=== PATIENT | male | born 1975 | race Caucasian/White ===

== ENCOUNTER 2019-02-01 02:24 | Inpatient (IN) | payer SELFPAY ==
[~2019-02-01] VITALS: Ht 185.4 cm; Wt 95.3 kg
[2019-02-01 02:35] VITALS: BP 123/85
[2019-02-01] MEDS ORDERED: NKM (02:39)
[2019-02-01] MEDS ORDERED: Nitroglycerin 2% oint pkt TOPIC ONE (03:00)
[2019-02-01] MEDS ORDERED: Isovue-300 100ml vial INJ PRN (03:00)
[2019-02-01 03:11] LABS: BASOPHILS % (AUTO) 0.6 % (0.0-2.0); EOSINOPHILS % (AUTO) 2.6 % (0.0-3.0); HEMATOCRIT 40.3 % (42.0-52.0); LYMPHOCYTES % (AUTO) 17.1 % (20.0-45.0); MEAN CORPUSCULAR VOLUME 89 FL (80-99); MONOCYTES % (AUTO) 7.4 % (1.0-10.0); NEUTROPHILS % (AUTO) 72.3 % (45.0-75.0); PLATELET COUNT 316 K/UL (150-450); RED BLOOD COUNT 4.54 M/UL (4.70-6.10)
--- NOTE | 2019-02-01 03:17 | Emergency Room Report ---
History of Present Illness General Chief Complaint: Pain Source: Patient Present Illness HPI Patient is a 43-year-old male brought in by self after approximately 1 week of persistent right great toe pain. [facility]. He reports having increased pain to the great toe which he describes a throbbing sensation. Patient reports being a smoker. He states that he had been attempting to lenny the toe with a small amount of bleeding. Patient additionally states that he had been putting a boil extraction ointment onto the tip. He denies any fever. Allergies: Coded Allergies: No Known Allergies (Unverified , 02/01/19) Patient History Past Medical History: see triage record Reviewed Nursing Documentation: PMH: Agreed; PSxH: Agreed Nursing Documentation-PMH Past Medical History: No Stated History Review of Systems All Other Systems: negative except mentioned in HPI Physical Exam Vital Signs Date Time Temp Pulse Resp B/P (MAP) Pulse Ox O2 Delivery O2 Flow Rate FiO2 02/01/19 02:35 98.2 93 16 123/85 (98) 98 Room Air Sp02 EP Interpretation: reviewed, normal General Appearance: normal inspection, well appearing, no apparent distress, alert, GCS 15 Head: atraumatic ENT: normal ENT inspection, hearing grossly normal, normal voice Neck: normal inspection, full range of motion, supple, no bony tend Respiratory: normal inspection, lungs clear, normal breath sounds, no respiratory distress, no retraction, no wheezing Cardiovascular #1: regular rate, rhythm, no edema Gastrointestinal: normal inspection, normal bowel sounds, non tender, soft, no guarding, no hernia Genitourinary: no CVA tenderness Musculoskeletal: normal range of motion, swelling - metatarsal swelling, slight erythema, discoloration to skin of right great toe Neurologic: normal inspection, alert, oriented x3, responsive, veneer drier III-XII nml as tested, speech normal Psychiatric: normal inspection, judgement/insight normal, mood/affect normal Skin: no rash, other - pallor to dorsum of toe and plantar aspect of great toe. some dark discoloration to lateral part left great toe Medical Decision Making Diagnostic Impression: Primary Impression: Cellulitis of foot Additional Impressions: Ischemic toe Substance abuse ER Course Patient presented for toe pain. Reportedly this is been present for several days. Patient had previously been seen by physicians [facility]. Patient was noted to have swelling and erythema to the foot as well as to the plantar aspect of the foot. The left great toe was noted to have some area of pale and necrotic tissue. There was some bruising noted which appears to be new. Patient initially was not forthcoming with history. Patient subsequently admitted that he had been injecting amphetamine into the veins of his foot. Patient had no response to topical nitrates. He was given IV for pain as well as Zosyn.Patient was started on heparin drip due to possible thrombosis of the arterial circulation to the great toe. Dr. Rasheed Silver was contacted for inpatient management. Labs Test 02/01/19 03:01 02/01/19 03:19 White Blood Count 10.0 K/UL (4.8-10.8) Red Blood Count 4.54 M/UL (4.70-6.10) Hemoglobin 14.0 G/DL (14.2-18.0) Hematocrit 40.3 % (42.0-52.0) Mean Corpuscular Volume 89 FL (80-99) Mean Corpuscular Hemoglobin 30.8 PG (27.0-31.0) Mean Corpuscular Hemoglobin Concent 34.7 G/DL (32.0-36.0) Red Cell Distribution Width 11.0 % (11.6-14.8) Platelet Count 316 K/UL (150-450) Mean Platelet Volume 7.1 FL (6.5-10.1) Neutrophils (%) (Auto) 72.3 % (45.0-75.0) Lymphocytes (%) (Auto) 17.1 % (20.0-45.0) Monocytes (%) (Auto) 7.4 % (1.0-10.0) Eosinophils (%) (Auto) 2.6 % (0.0-3.0) Basophils (%) (Auto) 0.6 % (0.0-2.0) Activated Partial Thromboplast Time 28 SEC (23-33) Sodium Level 139 MMOL/L (136-145) Potassium Level 4.0 MMOL/L (3.5-5.1) Chloride Level 101 MMOL/L (98-107) Carbon Dioxide Level 29 MMOL/L (21-32) Anion Gap 9 mmol/L (5-15) Blood Urea Nitrogen 16 mg/dL (7-18) Creatinine 1.0 MG/DL (0.55-1.30) Estimat Glomerular Filtration Rate > 60 mL/min (>60) Glucose Level 97 MG/DL (74-106) Uric Acid 3.5 MG/DL (2.6-7.2) Calcium Level 8.9 MG/DL (8.5-10.1) Total Bilirubin 0.3 MG/DL (0.2-1.0) Aspartate Amino Transf (AST/SGOT) 21 U/L (15-37) Alanine Aminotransferase (ALT/SGPT) 22 U/L (12-78) Alkaline Phosphatase 91 U/L (46-116) Total Protein 7.9 G/DL (6.4-8.2) Albumin 3.9 G/DL (3.4-5.0) Globulin 4.0 g/dL Albumin/Globulin Ratio 1.0 (1.0-2.7) Urine Opiates Screen Negative (NEGATIVE) Urine Barbiturates Screen Negative (NEGATIVE) Phencyclidine (PCP) Screen Negative (NEGATIVE) Urine Amphetamines Screen Positive (NEGATIVE) Urine Benzodiazepines Screen Negative (NEGATIVE) Urine Cocaine Screen Negative (NEGATIVE) Urine Marijuana (THC) Screen Negative (NEGATIVE) Last Vital Signs Date Time Temp Pulse Resp B/P (MAP) Pulse Ox O2 Delivery O2 Flow Rate FiO2 02/01/19 03:07 115/78 02/01/19 02:35 98.2 93 16 98 Room Air Status: unchanged Disposition: ADMITTED INPATIENT Condition: Serious Referrals: NOT CHOSEN IPA/,REFERRING (PCP) Yanick Julian MD February 01, 2019 03:17
[2019-02-01 03:20] LABS: ANION GAP 9 mmol/L (5-15); BLOOD UREA NITROGEN 16 mg/dL (7-18); CALCIUM 8.9 MG/DL (8.5-10.1); CARBON DIOXIDE 29 MMOL/L (21-32); CHLORIDE 101 MMOL/L (98-107); SODIUM 139 MMOL/L (136-145)
[2019-02-01 03:25] LABS: ALANINE AMINOTRANSFERASE 22 U/L (12-78); ALBUMIN 3.9 G/DL (3.4-5.0); ALKALINE PHOSPHATASE 91 U/L (46-116); ASPARTATE AMINO TRANSFERASE 21 U/L (15-37); BILIRUBIN,TOTAL 0.3 MG/DL (0.2-1.0)
[2019-02-01] MEDS ORDERED: Morphine Sulfate 4mg/ml Inj (IV USE ONLY) IVP ONE (03:30)
[2019-02-01] MEDS ORDERED: Piperacillin/Tazobactam 3.375 GM in NS 110 ML IVPB ONE (03:45)
[2019-02-01] MEDS ORDERED: Heparin 5000 units/ml inj IV ONE (05:15)
[2019-02-01] MEDS ORDERED: Heparin 25,000u/D5W 500ml 500 ML IV SCH ×2 (05:15→07:00)
[2019-02-01 06:09] VITALS: BP 114/79
[2019-02-01] MEDS ORDERED: Albuterol/Ipratropium 3ml neb HHN PRN (06:45)
[2019-02-01] MEDS ORDERED: Miralax 17gm pkt ORAL PRN (06:45)
[2019-02-01] MEDS ORDERED: Nitroglycerin Subl 0.4mg tab SL PRN (06:45)
[2019-02-01] MEDS ORDERED: Morphine Sulfate 2mg/ml Inj(IV/IM USE ONLY) IVP PRN (06:45)
[2019-02-01 08:00] VITALS: BP 118/79
[2019-02-01] MEDS ORDERED: Heparin 5000 units/ml inj SUBQ SCH (09:00)
--- NOTE | 2019-02-01 09:14 | Diagnostic Imaging Report ---
Indication: Left foot pain Technique: Continuous helical transaxial imaging of the left foot obtained without intravenous contrast administration. Coronal 2-D reformats were also obtained. Study obtained in a Siemens sensation [address] Automatic Exposure Control was utilized. Total Dose length Product (DLP): [address] Dose Index Volume (CTDIvol): 0.15 x 3, 15.26 mGy Comparison: None Findings: There is a 7 mm linear metallic foreign body within the plantar aspect of the foot. The foreign body is deep to the plantar aponeurosis within intrinsic muscle at about the level of the mid third metatarsal, 1.6 cm from the skin. There is some subcutaneous edema within the foot nonspecific. There is no malalignment, acute fracture, periostitis or erosion. There is no soft tissue gas. No obvious abnormal fluid collection identified. IMPRESSION: 7 mm metallic foreign body within the plantar muscles, acuity indeterminate. Please correlate clinically. Negative examination otherwise. [facility] has communicated the preliminary results to the Emergency Department. Their findings are largely concordant with this report. The CT scanner at [facility] is accredited by the [employer] and the scans are performed using dose optimization techniques as appropriate to a performed exam including Automatic Exposure control.
[2019-02-01] MEDS ORDERED: Vancomycin 1.25gm Premix 275 ML IVPB SCH (09:30)
[2019-02-01] MEDS ORDERED: Cefepime HCl 2 GM in D5W 110 ML IV SCH (11:00)
--- NOTE | 2019-02-01 12:02 | Diagnostic Imaging Report ---
Indication: Foot pain Comparison: None Findings: 3 views of the left foot were obtained. No acute fractures, malalignment, erosions or periostitis are identified. Soft tissues are unremarkable. Impression: No acute findings
--- NOTE | 2019-02-02 07:24 | Discharge Summary ---
Discharge Summary Discharge Summary _ DATE OF ADMISSION: 02/01/2019 DATE OF DISCHARGE: 02/01/2019 BRIEF HOSPITAL COURSE: Patient is a 43-year-old male, who presented to ED complaining of one-week persistent great toe pain. He reported prior visit to [facility] for similar symptoms. He reported increased pain to the great toe described to be a throbbing sensation. He stated he attempted to lenny the toe with a small amount of bleeding. He stated he had been putting boil extraction ointment. He denied any fever. He is a smoker. On evaluation at the ED, vital signs were stable. Blood work did not show any leukocytosis. Patient was afebrile. Hemoglobin and hematocrit were stable. Electrolytes were normal. Urine drug screen was positive for amphetamine. Patient presented for evaluation of toe pain and was noted to have swelling and erythema to the foot as well as plantar aspect of the foot. The left great toe was noted to have area of pale and necrotic tissue. There was bruising noted. Patient admits that he had been injecting amphetamine into the veins of his foot. X-ray of the left foot did not show any fractures, malalignment, erosions or periostitis. Left foot CT scan showed a 7 mm metallic foreign body within the plantar muscle, acuity indeterminate. He was given IV pain medication as well as Zosyn. He was started on heparin drip he was then admitted due to possible thrombosis of the arterial circulation of the great toe. Patient was transferred to [facility]. Upon transfer to the floor, patient decided to leave AMA. Full treatment was not carried out as patient left against medical advise. FINAL DIAGNOSES: Possible thrombosis of arterial circulation of the left great toe Noncompliance as patient left AMA DISPOSITION: Patient left against medical advise. I have been assigned to complete a discharge summary on this account, I was not involved with the patient's management. Ena Rodriguez NP February 02, 2019 07:24
--- NOTE | 2019-02-02 07:25 | History & Physical ---
History and Physical History & Physicial Patient left AMA before being seen Ena Rodriguez NP February 02, 2019 07:25
[2019-02-02] MEDS ORDERED: IBUPROFEN600 MG ORAL (20:21)
== END 2019-02-01 08:25 | disposition left against medical advice (07) | DRG 301 ==
LOC: EMR 02:59 → 4E 04:00 → EDBEDREQ 04:21
DX: I82.402 Acute embolism and thrombosis of unspecified deep veins of left lower extremity (principal); Z91.19 Patient's noncompliance with other medical treatment and regimen; F15.10 Other stimulant abuse, uncomplicated; F17.200 Nicotine dependence, unspecified, uncomplicated
CPT/HCPCS: 36415; 80053; 80307; 84550; 85025; 85730; 96365; 96367; 96375; 99285

== ENCOUNTER 2019-02-02 15:53 | Inpatient (IN) | payer SELFPAY ==
[~2019-02-02] VITALS: Ht 182.9 cm; Wt 95.3 kg
[~2019-02-02 15:53] MED LIST: NKM
--- NOTE | 2019-02-02 16:05 | NUR ---
ED Nurse Note: Patient walked into ED c/o left big toe infection and pain. dark discoloration/swelling noted. patient reports 6/10 shooting pain. patient reports that it all happened couple weeks ago, patient was "shotting meth amphetamine on the left foot, somethin went wrong, swelling started and blocked blood passage to the left big toe." patient also reports hx of ingrown toe-nail. pt was admitted to [facility] for treatment few days ago, unable to stay and signed AMA, patient came back for treatment. patient reports he is only taking ibuprofen for pain, no other medication at this time. patient is alert awake ambulatory breathing unlabored and even.
--- NOTE | 2019-02-02 16:43 | Emergency Room Report ---
History of Present Illness General Chief Complaint: Skin Rash/Abscess Source: Patient Present Illness [facility] This is a 43-year-old male who presents with several weeks of a discoloration of the left great toe. He admits to doing met amphetamines and injecting into the left foot. He was admitted here several days ago for possible cellulitis versus thrombosis. He was started on heparin and IV Zosyn. However, he signed out AGAINST MEDICAL ADVICE about 2 days ago. He now returns for ongoing treatment and management. He denies any fever or any change in his symptoms. Allergies: Coded Allergies: No Known Allergies (Unverified , 02/01/19) Patient History Past Surgical History: none Pertinent Family History: none Social History: Reports: drug use Nursing Documentation-[facility] Past Medical History: No Stated History Review of Systems All Other Systems: negative except mentioned in HPI Physical Exam Vital Signs Date Time Temp Pulse Resp B/P (MAP) Pulse Ox O2 Delivery O2 Flow Rate FiO2 02/02/19 15:56 98.2 91 16 116/78 (91) 96 Room Air General Appearance: well appearing, no apparent distress Head: normocephalic, atraumatic ENT: hearing grossly normal, normal voice Neck: full range of motion, supple Respiratory: no respiratory distress, speaking full sentences Musculoskeletal: no calf tenderness Neurologic: alert, normal gait Psychiatric: mood/affect normal Skin: no rash, other - On her left great toe, it is discolored and mildly swollen. With tenderness to touch. Cap refills are less than 2 seconds. The nailbed is intact. There is no fluctuance. Medical Decision Making Diagnostic Impression: Primary Impression: Foot abrasion, infected ER Course Patient was emergently seen and evaluated. Multiple bedside evaluations was done. I was particularly concerned about osteomyelitis, abscess, thrombosis, necrotic tissue. The previous chart was reviewed. The patient will be readmitted to the hospital. The patient will be admitted to the on-call doctor , Dr. Fitzpatrick. Patient was started on IV Zosyn and was given IV morphine for pain. Laboratory Tests Test 02/02/19 16:41 White Blood Count 9.7 K/UL (4.8-10.8) Red Blood Count 4.24 M/UL (4.70-6.10) L Hemoglobin 13.3 G/DL (14.2-18.0) L Hematocrit 35.8 % (42.0-52.0) L Mean Corpuscular Volume 85 FL (80-99) Mean Corpuscular Hemoglobin 31.4 PG (27.0-31.0) H Mean Corpuscular Hemoglobin Concent 37.0 G/DL (32.0-36.0) H Red Cell Distribution Width 10.4 % (11.6-14.8) L Platelet Count 298 K/UL (150-450) Mean Platelet Volume 5.6 FL (6.5-10.1) L Neutrophils (%) (Auto) 69.3 % (45.0-75.0) Lymphocytes (%) (Auto) 18.4 % (20.0-45.0) L Monocytes (%) (Auto) 7.9 % (1.0-10.0) Eosinophils (%) (Auto) 3.5 % (0.0-3.0) H Basophils (%) (Auto) 1.0 % (0.0-2.0) Sodium Level 140 MMOL/L (136-145) Potassium Level 4.0 MMOL/L (3.5-5.1) Chloride Level 106 MMOL/L (98-107) Carbon Dioxide Level 27 MMOL/L (21-32) Anion Gap 7 mmol/L (5-15) Blood Urea Nitrogen 15 mg/dL (7-18) Creatinine 1.0 MG/DL (0.55-1.30) Estimate Glomerular Filtration Rate > 60 mL/min (>60) Glucose Level 116 MG/DL (74-106) H Calcium Level 8.6 MG/DL (8.5-10.1) Last Vital Signs Date Time Temp Pulse Resp B/P (MAP) Pulse Ox O2 Delivery O2 Flow Rate FiO2 02/02/19 15:56 98.2 91 16 116/78 (91) 96 Room Air Disposition: ADMITTED INPATIENT Condition: Stable TERRY BURGER February 02, 2019 16:43
--- NOTE | 2019-02-02 16:44 | NUR ---
ED Nurse Note: blood sent to lab
[2019-02-02 16:54] VITALS: BP 124/71
[2019-02-02 17:03] LABS: ANION GAP 7 mmol/L (5-15); BLOOD UREA NITROGEN 15 mg/dL (7-18); CALCIUM 8.6 MG/DL (8.5-10.1); CARBON DIOXIDE 27 MMOL/L (21-32); CHLORIDE 106 MMOL/L (98-107); SODIUM 140 MMOL/L (136-145)
[2019-02-02 17:09] LABS: EOSINOPHILS % (AUTO) 3.5 % (0.0-3.0); HEMATOCRIT 35.8 % (42.0-52.0); HEMOGLOBIN 13.3 G/DL (14.2-18.0); LYMPHOCYTES % (AUTO) 18.4 % (20.0-45.0); MEAN CORPUSCULAR VOLUME 85 FL (80-99); MONOCYTES % (AUTO) 7.9 % (1.0-10.0); NEUTROPHILS % (AUTO) 69.3 % (45.0-75.0); PLATELET COUNT 298 K/UL (150-450); RED BLOOD COUNT 4.24 M/UL (4.70-6.10); RED CELL DISTRIBUTION WIDTH 10.4 % (11.6-14.8); WHITE BLOOD COUNT 9.7 K/UL (4.8-10.8)
[2019-02-02] MEDS ORDERED: Morphine Sulfate 4mg/ml Inj (IV USE ONLY) IVP ONE (17:15)
[2019-02-02] MEDS ORDERED: Zosyn 3.375gm inj ONE (17:27)
[2019-02-02] MEDS ORDERED: Piperacillin/Tazobactam 3.375 GM in NS 110 ML IVPB ONE (17:30)
[2019-02-02] MEDS ORDERED: Morphine Sulfate 4mg/ml Inj (IV USE ONLY) IVP PRN (17:30)
[2019-02-02] MEDS ORDERED: Mylanta II UD 30ml ORAL PRN (17:45)
[2019-02-02] MEDS ORDERED: HYDROcodone/Acetamin 5/325 tab ORAL PRN (17:45)
[2019-02-02] MEDS ORDERED: Piperacillin/Tazobactam 3.375 GM in NS 110 ML IVPB SCH (18:00)
--- NOTE | 2019-02-02 18:00 | NUR ---
ED Nurse Note: called 4E and spoke with Russ Cordoba is discharging a patient, unable to take report. told to call back in 10 minutes.
--- NOTE | 2019-02-02 18:07 | NUR ---
ED Nurse Note: venous duplex being done at bedside
--- NOTE | 2019-02-02 18:27 | NUR ---
ED Nurse report given to Russ RN, patient is unable to go up at this time because patient is getting venous duplex.
--- NOTE | 2019-02-02 19:00 | NUR ---
NURSE NOTES: Report got from [facility] at 1830 and pt is in 4E at 1900. pt is alert and orient x4. pt is in RA, no SOB or acute respiratory distress noted. pt has intact iv access R hand 20g SL. pt has black swollen L TOE. Dr dotson input all orders. apt is in the room with his fiance. all needs attended, bed is locked and is in the lowest position, call light within easy reach. report given to RIKA BUSTOS. will continue to monitor.
--- NOTE | 2019-02-02 19:35 | Diagnostic Imaging Report ---
EXAM: US Duplex Left Lower Extremity Arteries CLINICAL HISTORY: PAIN TECHNIQUE: Real-time duplex ultrasound scan of the left lower extremity arteries integrating B-mode two-dimensional vascular structure, Doppler spectral analysis and color flow Doppler imaging. COMPARISON: No relevant prior studies available. FINDINGS: Left common femoral artery: No occlusion or significant stenosis on color flow and spectral Doppler imaging. Left superficial femoral artery: No occlusion or significant stenosis on color flow and spectral Doppler imaging. Left popliteal artery: No occlusion or significant stenosis on color flow and spectral Doppler imaging. Normal Left calf/foot arteries: No occlusion or significant stenosis on color flow and spectral Doppler imaging. Soft tissues: No acute findings. IMPRESSION: No arterial occlusion or high grade stenosis.
--- NOTE | 2019-02-02 19:55 | NUR ---
NURSE NOTES: Pt received in bed, call light within reach, Fiance at bedside, able to make needs known, pt with c/o pain, will continue to monitor.
[2019-02-02 20:00] VITALS: BP 118/82
[2019-02-02] MEDS ORDERED: IBUPROFEN600 MG ORAL (20:21)
[2019-02-02] MEDS: Docusate 100mg cap ORAL SCH (21:27)
[2019-02-02] MEDS: Heparin 5000 units/ml inj SUBQ SCH (21:28)
[2019-02-02] MEDS: Vancomycin 1.5gm Premix IVPB SCH (21:31)
[2019-02-02] MEDS ORDERED: Morphine Sulfate 2mg/ml Inj(IV/IM USE ONLY) IVP PRN (23:00)
[2019-02-02] MEDS: Zoysn 3.37gm in NS 100ML IVPB SCH (23:54)
[2019-02-03] VITALS: BP 127/79
[2019-02-03] MEDS: Morphine Sulfate 4mg/ml Inj (IV USE ONLY) IVP PRN ×5 (03:18→20:54)
[2019-02-03 04:00] VITALS: BP 126/84
[2019-02-03] MEDS: Zoysn 3.37gm in NS 100ML IVPB SCH ×3 (06:45→23:34)
--- NOTE | 2019-02-03 07:30 | NUR ---
NURSE NOTES: Received pt from RIKA BUSTOS. pt is alert and orient x4. pt is in RA, No SOB or acute respiratory distress noted. pt has intact IV access RH 20G SL. Pt has L toe swollen and black and painful. pt is eating breakfast. all needs attended, bed is locked and is in the lowest position, call light within easy reach. will continue to monitor.
--- NOTE | 2019-02-03 07:31 | NUR ---
HAND-OFF: Report given to RIKA Solano.
[2019-02-03 07:32] LABS: BASOPHILS % (AUTO) 1.3 % (0.0-2.0); EOSINOPHILS % (AUTO) 5.6 % (0.0-3.0); HEMATOCRIT 40.6 % (42.0-52.0); MEAN CORPUSCULAR VOLUME 89 FL (80-99); MONOCYTES % (AUTO) 10.7 % (1.0-10.0); NEUTROPHILS % (AUTO) 54.4 % (45.0-75.0); PLATELET COUNT 308 K/UL (150-450); RED BLOOD COUNT 4.56 M/UL (4.70-6.10); RED CELL DISTRIBUTION WIDTH 10.9 % (11.6-14.8); WHITE BLOOD COUNT 6.2 K/UL (4.8-10.8)
[2019-02-03 07:47] LABS: ANION GAP 6 mmol/L (5-15); BLOOD UREA NITROGEN 13 mg/dL (7-18); CALCIUM 8.9 MG/DL (8.5-10.1); CARBON DIOXIDE 30 MMOL/L (21-32); CHLORIDE 104 MMOL/L (98-107); CREATININE 1.1 MG/DL (0.55-1.30); POTASSIUM 4.1 MMOL/L (3.5-5.1); SODIUM 140 MMOL/L (136-145)
[2019-02-03 08:00] VITALS: BP 117/82
[2019-02-03] MEDS: Heparin 5000 units/ml inj SUBQ SCH ×2 (08:17→20:57)
[2019-02-03] MEDS: Docusate 100mg cap ORAL SCH ×2 (08:20→20:54)
[2019-02-03] MEDS: Vancomycin 1.5gm Premix IVPB SCH ×2 (08:20→20:54)
[2019-02-03 12:00] VITALS: BP 129/86
--- NOTE | 2019-02-03 14:29 | NUR ---
CASE MANAGEMENT: REVIEW SI: LEFT TOE INFECTION T 98.2 HR 91 RR 16 BP 116/78 SAT 96% ROOM AIR LYMPH 18.4 EOS 3.5 IS: ZOSYN IV X1 MORPHINE IV X1 NS IVF BOLUS X1 PATIENT ADMITTED TO MED/SURG UNIT 02/02/2019 DCP: PATIENT IS FROM HOME
--- NOTE | 2019-02-03 14:59 | Infectious Diseases Prog Note ---
Assessment/Plan Assessment/Plan Full consult dictated: A) left foot great toe cellulitis ? abscess hx ivda vancomycin and zosyn consider podiatry consult monitor clinically may need MRI if no improvement thank you Subjective HEENT: Denies: congestion Allergies: Coded Allergies: No Known Allergies (Unverified , 02/01/19) Objective Vital Signs Last 24 Hour Vital Signs Date Time Temp Pulse Resp B/P (MAP) Pulse Ox O2 Delivery O2 Flow Rate FiO2 02/03/19 12:50 98.0 02/03/19 12:00 98.0 66 19 129/86 (100) 100 02/03/19 09:00 Room Air 02/03/19 08:00 98.0 74 20 117/82 (94) 99 02/03/19 04:00 97.9 79 20 126/84 (98) 97 02/03/19 00:00 98.1 75 18 127/79 (95) 97 02/02/19 21:00 Room Air 02/02/19 20:00 98.3 75 20 118/82 (94) 98 02/02/19 19:03 Room Air 02/02/19 18:05 98.2 02/02/19 16:54 98.2 78 18 124/71 98 Room Air 02/02/19 15:56 98.2 91 16 116/78 (91) 96 Room Air Height (Feet): 6 Height (Inches): 0.00 Weight (Pounds): 210 Laboratory Tests Test 02/02/19 16:41 02/03/19 06:40 White Blood Count 9.7 K/UL (4.8-10.8) 6.2 K/UL (4.8-10.8) Red Blood Count 4.24 M/UL (4.70-6.10) L 4.56 M/UL (4.70-6.10) L Hemoglobin 13.3 G/DL (14.2-18.0) L 14.0 G/DL (14.2-18.0) L Hematocrit 35.8 % (42.0-52.0) L 40.6 % (42.0-52.0) L Mean Corpuscular Volume 85 FL (80-99) 89 FL (80-99) Mean Corpuscular Hemoglobin 31.4 PG (27.0-31.0) H 30.8 PG (27.0-31.0) Mean Corpuscular Hemoglobin Concent 37.0 G/DL (32.0-36.0) H 34.5 G/DL (32.0-36.0) Red Cell Distribution Width 10.4 % (11.6-14.8) L 10.9 % (11.6-14.8) L Platelet Count 298 K/UL (150-450) 308 K/UL (150-450) Mean Platelet Volume 5.6 FL (6.5-10.1) L 6.3 FL (6.5-10.1) L Neutrophils (%) (Auto) 69.3 % (45.0-75.0) 54.4 % (45.0-75.0) Lymphocytes (%) (Auto) 18.4 % (20.0-45.0) L 28.0 % (20.0-45.0) Monocytes (%) (Auto) 7.9 % (1.0-10.0) 10.7 % (1.0-10.0) H Eosinophils (%) (Auto) 3.5 % (0.0-3.0) H 5.6 % (0.0-3.0) H Basophils (%) (Auto) 1.0 % (0.0-2.0) 1.3 % (0.0-2.0) Sodium Level 140 MMOL/L (136-145) 140 MMOL/L (136-145) Potassium Level 4.0 MMOL/L (3.5-5.1) 4.1 MMOL/L (3.5-5.1) Chloride Level 106 MMOL/L (98-107) 104 MMOL/L (98-107) Carbon Dioxide Level 27 MMOL/L (21-32) 30 MMOL/L (21-32) Anion Gap 7 mmol/L (5-15) 6 mmol/L (5-15) Blood Urea Nitrogen 15 mg/dL (7-18) 13 mg/dL (7-18) Creatinine 1.0 MG/DL (0.55-1.30) 1.1 MG/DL (0.55-1.30) Estimat Glomerular Filtration Rate > 60 mL/min (>60) > 60 mL/min (>60) Glucose Level 116 MG/DL (74-106) H 82 MG/DL (74-106) Calcium Level 8.6 MG/DL (8.5-10.1) 8.9 MG/DL (8.5-10.1) Current Medications Medications (Trade) Dose Ordered Sig/Segundo Route PRN Reason Start Time Stop Time Status Last Admin Dose Admin Acetaminophen (Tylenol) 650 mg Q4H PRN ORAL Mild Pain (Pain Scale 1-3) 02/02/19 17:45 03/04/19 17:44 Al Hydroxide/Mg Hydroxide (Mylanta II) 30 ml Q6H PRN ORAL dyspepsia 02/02/19 17:45 03/04/19 17:44 Dextrose (Dextrose 50%) 25 ml Q30M PRN IV Hypoglycemia 02/02/19 17:45 03/04/19 17:44 Dextrose (Dextrose 50%) 50 ml Q30M PRN IV Hypoglycemia 02/02/19 17:45 03/04/19 17:44 Diphenhydramine HCl (Benadryl) 25 mg Q6H PRN ORAL Itching/Pruritis 02/02/19 17:45 03/04/19 17:44 Docusate Sodium (Colace) 100 mg EVERY 12 HOURS ORAL 02/02/19 21:00 03/04/19 20:59 02/02/19 21:27 Heparin Sodium (Porcine) (Heparin 5000 units/ml) 5,000 units EVERY 12 HOURS SUBQ 02/02/19 21:00 03/04/19 20:59 02/03/19 08:17 Morphine Sulfate (Morphine Sulfate) 2 mg Q4H PRN IVP Moderate Pain (Pain Scale 4-6) 02/02/19 23:00 02/09/19 22:59 Morphine Sulfate (Morphine Sulfate) 4 mg Q4H PRN IVP Severe Pain (Pain Scale 7-10) 02/02/19 23:00 02/09/19 22:59 02/03/19 12:20 Ondansetron HCl (Zofran) 4 mg Q6H PRN IVP Nausea & Vomiting 02/02/19 17:39 03/04/19 17:38 Piperacillin Sod/ Tazobactam Sod 3.375 gm/Sodium Chloride 110 ml @ 27.5 mls/hr Q8H IVPB 02/02/19 23:00 02/09/19 22:59 02/03/19 06:45 Vancomycin HCl (Vanco rx to dose) 1 ea DAILY PRN MISC Per rx protocol 02/02/19 17:45 03/04/19 17:44 Vancomycin HCl/ Dextrose 275 ml @ 137.5 mls/ hr Q12HR IVPB 02/02/19 21:00 02/07/19 20:59 02/03/19 08:20 Ellen Salgado MD February 03, 2019 14:59
[2019-02-03 16:00] VITALS: BP 127/78
--- NOTE | 2019-02-03 18:44 | History and Physical ---
History of Present Illness General Date patient seen: February 03, 2019 Reason for Hospitalization: Skin Rash/Abscess Present Illness HPI 43 year old male with PMH of IVDA presented with complaints of L big toe discoloration for a few weeks, stated he noticed it after he injected IV drugs into his foot. Pt was at [facility], 2 days prior, left AMA because he had to return to work, CT at that time showed foreign body present. Pt denies fevers, chills, n/v/c/d, chest pain, SOB or urinary symptoms. Allergies: Coded Allergies: No Known Allergies (Unverified , 02/01/19) Medication History Miscellaneous Medications Ibuprofen* (Motrin*), 600 MG ORAL, (Reported) Patient History History Provided By: Patient Healthcare decision maker Resuscitation status Full Code Advanced Directive on File Review of Systems Constitutional: Reports: no symptoms Eye: Reports: no symptoms ENT: Reports: no symptoms Respiratory: Reports: no symptoms Cardiovascular: Reports: no symptoms Genitourinary: Reports: no symptoms Musculoskeletal: Reports: other - Left toe discoloration an pain Skin: Reports: other - left big toe discoloration Psychiatric: Reports: no symptoms Neurological: Reports: no symptoms Endocrine: Reports: no symptoms Hematologic/Lymphatic: Reports: no symptoms Physical Exam General Appearance: WD/WN, no apparent distress, alert Lines, tubes and drains: peripheral HEENT: normocephalic, atraumatic Neck: non-tender, normal alignment Respiratory/Chest: chest wall non-tender, lungs clear, normal breath sounds Cardiovascular/Chest: normal peripheral pulses, normal rate, regular rhythm Abdomen: normal bowel sounds, non tender, soft, no organomegaly Extremities: normal range of motion, other - left big toe with discoloration, tender to touch Skin Exam: other - discoloration of L big toe Neurologic: chicle grinder feeder II-XII grossly normal Last 24 Hour Vital Signs Date Time Temp Pulse Resp B/P (MAP) Pulse Ox O2 Delivery O2 Flow Rate FiO2 02/03/19 16:51 97.9 02/03/19 16:00 97.9 60 20 127/78 (94) 97 02/03/19 12:00 98.0 66 19 129/86 (100) 100 02/03/19 09:00 Room Air 02/03/19 08:00 98.0 74 20 117/82 (94) 99 02/03/19 04:00 97.9 79 20 126/84 (98) 97 02/03/19 00:00 98.1 75 18 127/79 (95) 97 02/02/19 21:00 Room Air 02/02/19 20:00 98.3 75 20 118/82 (94) 98 02/02/19 19:03 Room Air Intake and Output 02/02/19 02/03/19 19:00 07:00 Intake Total 385.0 ml Balance 385.0 ml IV Total 385.0 ml # Voids 2 Laboratory Tests Test 02/03/19 06:40 White Blood Count 6.2 K/UL (4.8-10.8) Red Blood Count 4.56 M/UL (4.70-6.10) L Hemoglobin 14.0 G/DL (14.2-18.0) L Hematocrit 40.6 % (42.0-52.0) L Mean Corpuscular Volume 89 FL (80-99) Mean Corpuscular Hemoglobin 30.8 PG (27.0-31.0) Mean Corpuscular Hemoglobin Concent 34.5 G/DL (32.0-36.0) Red Cell Distribution Width 10.9 % (11.6-14.8) L Platelet Count 308 K/UL (150-450) Mean Platelet Volume 6.3 FL (6.5-10.1) L Neutrophils (%) (Auto) 54.4 % (45.0-75.0) Lymphocytes (%) (Auto) 28.0 % (20.0-45.0) Monocytes (%) (Auto) 10.7 % (1.0-10.0) H Eosinophils (%) (Auto) 5.6 % (0.0-3.0) H Basophils (%) (Auto) 1.3 % (0.0-2.0) Sodium Level 140 MMOL/L (136-145) Potassium Level 4.1 MMOL/L (3.5-5.1) Chloride Level 104 MMOL/L (98-107) Carbon Dioxide Level 30 MMOL/L (21-32) Anion Gap 6 mmol/L (5-15) Blood Urea Nitrogen 13 mg/dL (7-18) Creatinine 1.1 MG/DL (0.55-1.30) Estimat Glomerular Filtration Rate > 60 mL/min (>60) Glucose Level 82 MG/DL (74-106) Calcium Level 8.9 MG/DL (8.5-10.1) Height (Feet): 6 Height (Inches): 0.00 Weight (Pounds): 210 Medications Current Medications Medications (Trade) Dose Ordered Sig/Segundo Route PRN Reason Start Time Stop Time Status Last Admin Dose Admin Acetaminophen (Tylenol) 650 mg Q4H PRN ORAL Mild Pain (Pain Scale 1-3) 02/02/19 17:45 03/04/19 17:44 Al Hydroxide/Mg Hydroxide (Mylanta II) 30 ml Q6H PRN ORAL dyspepsia 02/02/19 17:45 03/04/19 17:44 Dextrose (Dextrose 50%) 25 ml Q30M PRN IV Hypoglycemia 02/02/19 17:45 03/04/19 17:44 Dextrose (Dextrose 50%) 50 ml Q30M PRN IV Hypoglycemia 02/02/19 17:45 03/04/19 17:44 Diphenhydramine HCl (Benadryl) 25 mg Q6H PRN ORAL Itching/Pruritis 02/02/19 17:45 03/04/19 17:44 Docusate Sodium (Colace) 100 mg EVERY 12 HOURS ORAL 02/02/19 21:00 03/04/19 20:59 02/02/19 21:27 Heparin Sodium (Porcine) (Heparin 5000 units/ml) 5,000 units EVERY 12 HOURS SUBQ 02/02/19 21:00 03/04/19 20:59 02/03/19 08:17 Morphine Sulfate (Morphine Sulfate) 2 mg Q4H PRN IVP Moderate Pain (Pain Scale 4-6) 02/02/19 23:00 02/09/19 22:59 Morphine Sulfate (Morphine Sulfate) 4 mg Q4H PRN IVP Severe Pain (Pain Scale 7-10) 02/02/19 23:00 02/09/19 22:59 02/03/19 16:21 Ondansetron HCl (Zofran) 4 mg Q6H PRN IVP Nausea & Vomiting 02/02/19 17:39 03/04/19 17:38 Piperacillin Sod/ Tazobactam Sod 3.375 gm/Sodium Chloride 110 ml @ 27.5 mls/hr Q8H IVPB 02/02/19 23:00 02/09/19 22:59 02/03/19 14:54 Vancomycin HCl (Vanco rx to dose) 1 ea DAILY PRN MISC Per rx protocol 02/02/19 17:45 03/04/19 17:44 Vancomycin HCl/ Dextrose 275 ml @ 137.5 mls/ hr Q12HR IVPB 02/02/19 21:00 02/07/19 20:59 02/03/19 08:20 Assessment/Plan Status: stable Assessment/Plan: A 43 year old male with PMH of IVDA admitted for foreign body in L big toe, possible cellulitis and abscess #Left big toe foerign body and poss cellulitis -Cont vanc and zosyn -CT with foreign body -Podiatry consulted -ID consulted -CTM #Hx IVDA -will consult psych Code FUll I spent 70 minutes on this patient's case, and 35 minutes was dedicated to counseling and/or care coordination. Gris Olmedo MD February 03, 2019 18:44
--- NOTE | 2019-02-03 19:33 | NUR ---
HAND-OFF: Report given to RIKA BUSTOS.
--- NOTE | 2019-02-03 19:38 | NUR ---
NURSE NOTES: Pt received in bed awake and alert, able to make needs known, call light within reach, no c/o pain at the moment, VS stable 120/85, 97.9, 74hr 97%RA. IV in tact, will continue to monitor.
[2019-02-03 20:00] VITALS: BP 120/85
--- NOTE | 2019-02-03 23:15 | Consultation ---
DATE OF CONSULTATION: 02/03/2019 INFECTIOUS DISEASES CONSULTATION CONSULTING PHYSICIAN: Ellen Salgado M.D. REFERRING PHYSICIAN: Gris Quesada M.D. ATTENDING PHYSICIAN: Pamela Cross M.D. REASON FOR CONSULTATION: Left foot great toe swelling and cellulitis. CHIEF COMPLAINT: The patient's chief complaint coming into the hospital is left foot great toe cellulitis and discoloration. HISTORY OF PRESENT ILLNESS: This is a 43-year-old male, who comes in to [facility] with left foot great toe pain. The patient was recently in the hospital and left AMA for cellulitis. The patient also on the left foot has discoloration. Infectious Disease consultation was requested for antibiotic management. The patient is currently on vancomycin and Zosyn. REVIEW OF SYSTEMS: Main issue is left foot pain in the great toe. No shortness of breath, chest pain, nausea, vomiting, diarrhea, or bloody stool. PAST MEDICAL HISTORY: As discussed shortly, he has history of cellulitis. No history of hypertension or diabetes. ALLERGIES: No known drug allergies. SOCIAL HISTORY: Positive for IV drug abuse including methamphetamines injected in the feet. FAMILY HISTORY: Noncontributory. MEDICATIONS: Were noted and reconciliated. PHYSICAL EXAMINATION: VITAL SIGNS: Temperature 98.0 degrees, pulse rate 66, respiratory rate 19, blood pressure 120/86, and saturation 100%. GENERAL: The patient is alert and responsive, in no distress. HEART: Regular. No gallop or murmur. ABDOMEN: Soft. Positive bowel sounds. Nontender. LUNGS: Clear bilaterally. No rhonchi or rales. EXTREMITIES: Left foot had discoloration, swelling, and pain on palpation. LABORATORY AND IMAGING DATA: White count 6.2 and hemoglobin 14.0. Creatinine 1.1. Previous admission, the patient had a CT scan of his foot, which showed the following, it showed 7 mm metallic foreign body within the plantar muscles. ASSESSMENT AND PLAN: 1. The patient has what looks like left foot great toe cellulitis and discoloration. CT scan on previous admission that was very recent was done on 02/01/2019 where he left AMA showed metallic object. It is unclear if he has remaining needle parts in the foot. The patient said he might have that, but this time, the patient is unclear what the metallic object is. Because of the left foot great toe cellulitis and significant pain, must consider underlying abscess; however, I would also consider Podiatry evaluation. The patient may need an MRI. Continue vancomycin and Zosyn for now for left foot great toe cellulitis and await Podiatry evaluation because of discoloration of left foot great toe, rule out underlying abscess and also because of the foreign object seen on CT scan. 2. Methamphetamine use. 3. Intravenous drug abuse. 4. We will check HIV. 5. Monitor labs. 6. Case discussed with Dr. Quesada. Ellen Salgado M.D. DR: SANTANA JOB#: [id number] CC:
[2019-02-04] VITALS: BP 118/79
[2019-02-04] MEDS: Morphine Sulfate 4mg/ml Inj (IV USE ONLY) IVP PRN ×3 (02:13→11:02)
[2019-02-04 04:00] VITALS: BP 137/88
[2019-02-04] MEDS: Zoysn 3.37gm in NS 100ML IVPB SCH (06:35)
--- NOTE | 2019-02-04 07:48 | NUR ---
HAND-OFF: Report given to RIKA Mcallister.
[2019-02-04 08:00] VITALS: BP 141/91
--- NOTE | 2019-02-04 08:00 | NUR ---
NURSE NOTES: received pt lying in high [place], accompanied by friend. Patient's left great toe is discolored and swollen. Pt complained of pain but pain medication is not due, told pt the due time. pt agreed to wait. Pt has IV access on right hand, saline locked. Bed locked at the lowest position possible, call light within easy muriel, siderails up x2. Will continue to monitor pt and follow up with the plan of care.
[2019-02-04 09:13] LABS: BASOPHILS % (AUTO) 1.3 % (0.0-2.0); EOSINOPHILS % (AUTO) 4.3 % (0.0-3.0); HEMATOCRIT 47.4 % (42.0-52.0); HEMOGLOBIN 16.2 G/DL (14.2-18.0); LYMPHOCYTES % (AUTO) 19.9 % (20.0-45.0); MEAN CORPUSCULAR VOLUME 89 FL (80-99); NEUTROPHILS % (AUTO) 67.5 % (45.0-75.0); PLATELET COUNT 311 K/UL (150-450); RED BLOOD COUNT 5.32 M/UL (4.70-6.10); RED CELL DISTRIBUTION WIDTH 10.8 % (11.6-14.8); WHITE BLOOD COUNT 7.7 K/UL (4.8-10.8)
[2019-02-04] MEDS: Docusate 100mg cap ORAL SCH (09:22)
[2019-02-04] MEDS: Heparin 5000 units/ml inj SUBQ SCH (09:26)
[2019-02-04] MEDS: Vancomycin 1.5gm Premix IVPB SCH (09:29)
[2019-02-04 09:35] LABS: ANION GAP 5 mmol/L (5-15); BLOOD UREA NITROGEN 15 mg/dL (7-18); CALCIUM 9.2 MG/DL (8.5-10.1); CARBON DIOXIDE 32 MMOL/L (21-32); CHLORIDE 101 MMOL/L (98-107); CREATININE 1.1 MG/DL (0.55-1.30); POTASSIUM 4.2 MMOL/L (3.5-5.1); SODIUM 138 MMOL/L (136-145)
--- NOTE | 2019-02-04 11:41 | Diagnostic Imaging Report ---
EXAM: XR Left Foot Complete, 3 or More Views CLINICAL HISTORY: INFECT TECHNIQUE: Frontal, lateral and oblique views of the left foot. COMPARISON: No relevant prior studies available. FINDINGS: Bones/joints: No visible displaced fracture. No dislocation. No osseous erosions. Visualized joint spaces appear unremarkable. Incidental note of a tiny Achilles tendon enthesophyte. Soft tissues: 5 mm linear radiodense foreign body identified plantar to the mid metatarsals on only the lateral projection. No other radiodense foreign bodies. No soft tissue gas lucencies. IMPRESSION: 5 mm linear radiodense foreign body identified plantar to the mid metatarsals on only the lateral projection. Recommend clinical correlation.
[2019-02-04 12:00] VITALS: BP 156/88
--- NOTE | 2019-02-04 14:48 | NUR ---
CASE MANAGEMENT: REVIEW SI: LEFT TOE INFECTION T 97.9 HR 60 RR 20 BP 127/78 SAT 97% ROOM AIR LYMPH 19.9 EOS 4.3 IS: ZOSYN IV Q8HR VANCO IV Q12HR HEPARIN SQ Q12HR MORPHINE SQ Q12HR PRN MED/SURG STATUS DCP: PATIENT IS FROM HOME
--- NOTE | 2019-02-04 15:20 | NUR ---
At 1310 patient told nurse he'd sign AMA and leave, as he couldn't wait to have procedure done on his left foot. Nurse advised pt to stay as his left foot cellulitis could get worse, but pt still expressed desire to leave AMA. Nurse notified drs. Olmedo and Jimmie, when she came back to room pt already eloped with IV access on him. Nurse notified nurse dairy processing supervisor and CN, left message to pantera Mcallister at . Pantera called back telling nurse she'd look for and communicate message to pt. Pt called back saying he'd come to [facility] to sign AMA and show nurse he already dc'd IV access. At 1520 pt came up to the floor, signed AMA form, and showed nurse his IV access was off. Nurse told pt to care for his feet, and ifsees sign of local worsening and/or fevers, chills, malaise to come back to ED. Communicated to CN and nurse dairy processing supervisor.
[2019-02-04] MEDS ORDERED: NS 275ml ONE (15:38)
[2019-02-04] MEDS ORDERED: Tubing IV Secondary IV ONE (15:38)
--- NOTE | 2019-02-04 17:56 | Discharge Summary ---
Discharge Summary Hospital Course Date of Admission February 02, 2019 at 17:32 Date of Discharge February 04, 2019 at 15:39 Admitting Diagnosis LEFT TOE INFECTION HPI Je Capo Gregory is a 44 year old male who was admitted on February 02, 2019 at 17:32 for Left Toe Infection Hospital Course A 43 year old male with PMH of IVDA admitted for foreign body in L big toe, possible cellulitis and abscess PT ELOPED FROM HOSPITAL WITH IV LINE IN PLACE, SECUR[employer] AND [employer] NOTIFIED #Left big toe foerign body and poss cellulitis -received IV vanc and zosyn -CT with foreign body -Podiatry consulted - pt left prior to evaluation -ID consulted #Hx IVDA Discharge Discharge Disposition Patient was discharged to [facility] MD February 04, 2019 17:56
--- NOTE | 2019-02-05 19:15 | Consultation ---
DATE OF CONSULTATION: 02/04/2019 REFERRING PHYSICIAN: Pamela Cross M.D. CONSULTING PHYSICIAN: Cristo Samuel D.P.M. REASON FOR CONSULTATION: Possible foreign body to the left foot. HISTORY OF PRESENT ILLNESS: This is a 44-year-old gentleman who [place] [facility] [place]itis to the left great toe. The patient states that even IV drug and states that he noticed a possible infection to the great toe and he decided to poke at with a needle seeking to release some pus. He states that he has not seen drainage or discharge, but he may have left the needle in foot on his toe. The patient denies fevers, chills, nausea, or vomiting. The patient is on intravenous vancomycin and Zosyn. PAST MEDICAL HISTORY: Per Dr. Cross. PODIATRY EXAMINATION: VASCULAR: Dorsalis pedis and posterior tibial artery are palpable 2/4 with capillary filling time of 3 seconds. NEUROLOGIC: Sharp and dull in proprioception, protected threshold noted to be diminished . MUSCULOSKELETAL: No gross abnormality seen bilaterally. The patient is mobile. Muscle strength is 5/5 in all 4 quadrants. Range of motion is within normal limits. DERMATOLOGICAL: Attention was directed to the left hallux where a hyperpigmented purple discoloration noted of hallux of the left great toe, but was further evaluated for discharge and initial purulent matter that was not identified, there is periwound erythema. The patient was evaluated for possible foreign body. No were identified. ASSESSMENT AND PLAN: Left great toe cellulitis and possible foreign body. The patient has a positive needle on CT exam that was done at prior admission. The patient was admitted for the same reason, but decided to be AMA, has recurrent for treatment. Due to his leave and return and readmitted to the hospital, an additional MRI needs to be done to evaluate it out and also to identify the position of the foreign body for surgical intervention. Order was written for application of Betadine to the left great toe and final IV antibiotics, the patient will be followed. Cristo Samuel D.P.M DR: MERCEDES JOB#: [id number] CC:
[2019-02-06] MEDS ORDERED: BACTRIM DS TAB1 EAC1 ORAL (01:43)
[2019-02-06] MEDS ORDERED: CEPHALEXIN500 MG ORAL (01:43)
== END 2019-02-04 15:39 | disposition left against medical advice (07) | DRG 565 ==
LOC: EMR 17:20 → 4E 17:32 → EDBEDREQ 17:49
DX: M79.5 Residual foreign body in soft tissue (principal); L02.612 Cutaneous abscess of left foot; L03.032 Cellulitis of left toe; F15.10 Other stimulant abuse, uncomplicated
CPT/HCPCS: 36415; 80048; 80202; 85025; 86703; 87081; 93926; 96361; 96365; 96375; 99285; J2405

== ENCOUNTER 2019-02-07 11:24 | Emergency (ER) | payer SELFPAY ==
[~2019-02-07] VITALS: Ht 182.9 cm; Wt 95.3 kg
[~2019-02-07 11:24] MED LIST changes: +BACTRIM DS TAB1 EAC1 ORAL; +CEPHALEXIN500 MG ORAL; +IBUPROFEN600 MG ORAL
--- NOTE | 2019-02-07 11:45 | NUR ---
ED Nurse Note: PT WALKED IN TO ER TODAY FROM HOME. AOX4. PT C/O LEFT FOOT PAIN, 05/22 DUE TO DIAGNOSED LEFT FOOT CELLULITIS. PT STATES HE WAS SEEN RECENTLY SEEN AT [facility] AND GIVEN AN ANTIBIOTIC REGIMEN. HOWEVER, PT ADMITS HE HAS NOT BEEN COMPLIANT WITH MEDICATION.
--- NOTE | 2019-02-07 11:47 | NUR ---
ED Nurse Note: REPORT GIVEN TO RIKA CHAUDHARY.
[2019-02-07] MEDS ORDERED: Piperacillin/Tazobactam 3.375 GM in NS 110 ML IVPB ONE (12:00)
--- NOTE | 2019-02-07 12:14 | NUR ---
ED Nurse Note:blood was sent to labs, IV antibiotic given
[2019-02-07] MEDS ORDERED: Gadavist 7.5mMol/7.5ml vial IV PRN (12:15)
[2019-02-07 12:28] LABS: BASOPHILS % (AUTO) 1.1 % (0.0-2.0); EOSINOPHILS % (AUTO) 3.8 % (0.0-3.0); HEMATOCRIT 48.8 % (42.0-52.0); HEMOGLOBIN 16.7 G/DL (14.2-18.0); LYMPHOCYTES % (AUTO) 17.7 % (20.0-45.0); MEAN CORPUSCULAR VOLUME 89 FL (80-99); MONOCYTES % (AUTO) 7.2 % (1.0-10.0); NEUTROPHILS % (AUTO) 70.2 % (45.0-75.0); PLATELET COUNT 401 K/UL (150-450); RED BLOOD COUNT 5.49 M/UL (4.70-6.10); RED CELL DISTRIBUTION WIDTH 10.8 % (11.6-14.8); WHITE BLOOD COUNT 10.6 K/UL (4.8-10.8)
[2019-02-07] MEDS ORDERED: Acetaminophen 500mg (ES) tab ORAL ONE (12:30)
[2019-02-07 12:37] LABS: ANION GAP 8 mmol/L (5-15); BLOOD UREA NITROGEN 14 mg/dL (7-18); CALCIUM 9.7 MG/DL (8.5-10.1); CARBON DIOXIDE 30 MMOL/L (21-32); CHLORIDE 101 MMOL/L (98-107); CREATININE 1.1 MG/DL (0.55-1.30); POTASSIUM 4.3 MMOL/L (3.5-5.1); SODIUM 139 MMOL/L (136-145)
[2019-02-07 12:44] LABS: ALANINE AMINOTRANSFERASE 35 U/L (12-78); ALBUMIN 4.3 G/DL (3.4-5.0); ALBUMIN/GLOBULIN RATIO 0.9 (1.0-2.7); ALKALINE PHOSPHATASE 98 U/L (46-116); ASPARTATE AMINO TRANSFERASE 24 U/L (15-37); BILIRUBIN,TOTAL 0.4 MG/DL (0.2-1.0)
--- NOTE | 2019-02-07 13:07 | NUR ---
ED Nurse Note:pt. went to MRI
--- NOTE | 2019-02-07 14:00 | NUR ---
ED Nurse Note:pt. is back from MRI, will get admited
--- NOTE | 2019-02-07 14:38 | Diagnostic Imaging Report ---
Indication: Pain, great toe gangrene Technique: Sagittal, axial, coronal T1 fast spin echo, and FSE STIR images of the left foot Comparison: CT scan dated 02/01/2019 Findings: There is image degradation due to motion artifact. On the sagittal and coronal images, there is suggestion of increased STIR signal in the medial aspect of the distal phalanx, particularly the terminal tuft, but there is no associated T1 abnormality. No other osseous marrow signal abnormality is demonstrated. There is minimal edema of the subcutaneous fat of the great toe. Soft tissue edema is also seen in the web spaces between the first and second and second and third metatarsals. Edema is also seen plantar to these bones. No discrete localized fluid collection to suggest abscess demonstrated. There is some dorsal edema adjacent to the first through fourth metatarsals as well. This is best appreciated on the coronal images. There is an area of susceptibility artifact within the musculature of the foot plantar to the shaft of the second metatarsal. This corresponds to a metallic foreign body, reportedly a retained needle, demonstrated on recent CT scan. Impression: Very questionable STIR signal abnormality in the first distal phalanx, without corresponding T1 signal abnormality. Most likely reactive or artifactual, but changes of early osteomyelitis also possible Soft tissue edema, as described. This may be vasogenic in nature or indicate cellulitis Area of susceptibility artifact, corresponding to foreign body (retained needle) cyst demonstrated on prior CT scan and plain radiographs
--- NOTE | 2019-02-07 15:08 | Emergency Room Report ---
History of Present Illness General Chief Complaint: Lower Extremity Injury Source: Patient Present Illness HPI Patient is a 44-year-old male who presented after continued left foot pain. Patient had recent hospitalization after injecting methamphetamine into his foot. Patient reports having persistent pain to the lower extremity. Patient had previously been admitted to this facility and seen by podiatry. He was noted to have some initial discoloration to his toe. He had been treated with IV antibiotics and had recently been seen and given prescription for oral antibiotics. Patient had previously been hospitalized and after initial hospitalization he left the hospital AGAINST MEDICAL ADVICE. Patient subsequently was admitted again after initial evaluation subsequently left the hospital again without notifying staff. Patient denies any fever. He was noted to have some retained foreign body to his foot. Foreign body was not localized near the area of discoloration. Allergies: Coded Allergies: No Known Allergies (Unverified , 02/01/19) Patient History Past Medical History: see triage record Reviewed Nursing Documentation: PMH: Agreed; PSxH: Agreed Nursing Documentation-PM Past Medical History: No History, Except For Review of Systems All Other Systems: negative except mentioned in HPI Physical Exam Vital Signs Date Time Temp Pulse Resp B/P (MAP) Pulse Ox O2 Delivery O2 Flow Rate FiO2 02/07/19 11:31 98.4 99 20 144/96 (112) 98 Room Air Sp02 EP Interpretation: reviewed, normal General Appearance: normal inspection, well appearing, no apparent distress, alert, GCS 15, non-toxic Head: atraumatic ENT: normal ENT inspection, hearing grossly normal, normal voice Neck: normal inspection, full range of motion, supple, no bony tend Respiratory: normal inspection, lungs clear, normal breath sounds, no respiratory distress, no retraction, no wheezing Cardiovascular #1: regular rate, rhythm, no edema Gastrointestinal: normal inspection, normal bowel sounds, non tender, soft, no guarding, no hernia Genitourinary: no CVA tenderness Musculoskeletal: normal inspection, back normal, normal range of motion Neurologic: normal inspection, alert, oriented x3, responsive, cook helper III-XII nml as tested, speech normal Psychiatric: normal inspection, judgement/insight normal, mood/affect normal Skin: normal color, no rash, other - discoloration to tip of toe, minimal swelling to the foot. Improved from visit when seen by me previously. Medical Decision Making Diagnostic Impression: Primary Impression: Foreign body (FB) in soft tissue Additional Impression: Toe infection ER Course . . Patient presented for toe pain. Differential diagnosis include was not limited to osteomyelitis, fracture, tissue necrosis among others. Because of complexity of patient's case laboratory testing and imaging studies were ordered. Patient is noted to have a normal white blood count. MRI of the foot read by radiology showed significant motion artifact as well as some slight increased signal in the distal phalanx. See MRI report for exact reading. Patient was given IV antibiotics in the emergency department. He appears to be stable for outpatient follow-up with podiatry patient appears to have good dorsalis pedis pulses. He is advised to keep the foot elevated and to follow- up with his [facility] for recheck Last Vital Signs Date Time Temp Pulse Resp B/P (MAP) Pulse Ox O2 Delivery O2 Flow Rate FiO2 02/07/19 14:13 98.4 02/07/19 11:31 99 20 144/96 (112) 98 Room Air Status: improved Disposition: HOME, SELF-CARE Condition: Stable Scripts Ibuprofen* (MOTRIN*) 600 Mg Tablet 600 MG ORAL Q8H PRN for For Pain, #20 TAB 0 Refills Prov: Yanick Julian MD 02/07/19 Referrals: NOT CHOSEN IPA/,REFERRING (PCP) Yanick Julian MD February 07, 2019 15:08
[2019-02-07] MEDS ORDERED: IBUPROFEN600 MG ORAL (15:20)
[2019-02-07 15:24] VITALS: BP 140/93
--- NOTE | 2019-02-07 15:50 | NUR ---
ER DISCHARGE NOTE: Patient is cleared to be discharged per ERMD, pt is aox4, on room air, with stable vital signs. pt was given dc and prescription instructions, pt was able to verbalize understanding, pt id band and iv site removed without complications. pt is able to ambulate with steady gait. pt took all belongings.
[2019-02-07 15:54] VITALS: BP 140/93
== END 2019-02-07 15:56 | disposition home or self-care (01) ==
LOC: EMR 11:58 → CANBEDREQ 15:20 → EMR 15:56
DX: M79.5 Residual foreign body in soft tissue (principal); L08.9 Local infection of the skin and subcutaneous tissue, unspecified
CPT/HCPCS: 36415; 73718; 80053; 85025; 96365; 99284; J2543